=== PATIENT | female | born 1985 | race Caucasian/White ===

== ENCOUNTER 2019-04-23 01:08 | Emergency (ER) | payer BC ==
[~2019-04-23] VITALS: Ht 157.5 cm; Wt 60.3 kg
[2019-04-23 01:11] VITALS: BP 118/83
[2019-04-23] MEDS ORDERED: ALBUTEROL SULF 2.5 MG/0.5ML(0.5%) NEB SOLN NEB ONE (03:00)
[2019-04-23] MEDS ORDERED: IPRATROPIUM BROM 0.5 MG/2.5ML INH SOL NEB ONE (03:00)
== END 2019-04-23 03:32 | disposition home or self-care (01) ==
LOC: ER 01:10
DX: J20.9 Acute bronchitis, unspecified (principal)
CPT/HCPCS: 71046; 94640; 99283; J7611; J7644